=== PATIENT | female | born 1985 | race Two or more races ===

== ENCOUNTER 2018-11-26 13:50 | Emergency (ER) | payer SELFPAY ==
[~2018-11-26] VITALS: Ht 157.5 cm; Wt 61.9 kg
[2018-11-26] MEDS ORDERED: IBUPROFEN 200 MG TABLET ONE (14:24)
[2018-11-26] MEDS ORDERED: IBUPROFEN 600 MG TABLET PO ONE (14:30)
--- NOTE | 2018-11-26 14:45 | NUR ---
pt presents to ED with c/o cough, headache, and neck pain for last few days. pt a&ox4, resps even and unlabored, neuro intact. mask in place. pt medicated per emar, tolerated well. bp and spo2 monitors in place. call light in reach. awaiting lab results and dispo at this time.
[2018-11-26 14:59] LABS: BASOPHILS # (AUTO) 0.05 x10^3/uL (0-0.1); BASOPHILS % (AUTO) 1 % (0-1); EOSINOPHILS % (AUTO) 0 % (1-7); LYMPHOCYTES # (AUTO) 1.36 x10^3/uL (1-3.4); LYMPHOCYTES % (AUTO) 22 % (22-44); MD NO; MEAN CORPUSCULAR HEMOGLOBIN 27.6 pg (27.0-34.8); MEAN CORPUSCULAR HGB CONC 33.4 g/dL (32.4-35.8); MEAN CORPUSCULAR VOLUME 82.7 fL (80-100); MEAN PLATELET VOLUME 8.9 fL (7.4-10.4); MONOCYTES # (AUTO) 0.43 x10^3/uL (0.2-0.8); MONOCYTES % (AUTO) 7 % (2-9); NEUTROPHILS # (AUTO) 4.26 x10^3/uL (1.8-6.8); NEUTROPHILS % (AUTO) 70 % (42-75); PLATELET COUNT 332 x10^3/uL (130-400); RED BLOOD COUNT 5.12 x10^6/uL (3.82-5.3); RED CELL DISTRIBUTION WIDTH 13.8 % (9.6-15.2)
[2018-11-26 15:03] LABS: ALBUMIN 3.5 g/dL (3.4-5.0); ANION GAP 8 mmol/L (5-15); CALCIUM 8.7 mg/dL (8.5-10.1); CHLORIDE 89 mmol/L (98-107)
--- NOTE | 2018-11-26 15:45 | NUR ---
PIV ATTEMPTED X 2 BY THIS RN WITHOUT SUCCESS, CHON RN AT BEDSIDE TO ATTEMPT PIV PLACEMENT.
[2018-11-26] MEDS ORDERED: SODIUM CHLORIDE FLUSH 10ML SYR IVF ONE (16:00)
[2018-11-26] MEDS ORDERED: CEFTRIAXONE PMX 1GM/50ML 50 ML IVPB ONE (16:00)
[2018-11-26] MEDS ORDERED: SODIUM CHLORIDE 0.9% 1,000ML IVBOLUS ONE ×2 (16:00)
[2018-11-26] MEDS ORDERED: CEFTRIAXONE 1,000 MG IM ONE (16:00)
--- NOTE | 2018-11-26 16:00 | NUR ---
PIV PLACED, IVF INITIATED BY CONG GIVENS.
[2018-11-26] MEDS ORDERED: CEFTRIAXONE PMX 1GM/50ML 50 ML ONE (16:15)
--- NOTE | 2018-11-26 16:35 | NUR ---
LAB AND IMAGING RESULTS REVIEWED BY LEXI SEVILLA. PER ERP, PT DOES NOT NEED BLOOD CX PRIOR TO IV ABX PLAN IS TO MANAGE PNA OUTPATIENT. IV ROCEPHIN INITIATED. PIV WAS POSITIONAL SO ONLY 200ML NS HAS INFUSED SO FAR. IV SECURED TO ELIMINATE POSITIONAL FLOW PROBLEMS, IVF INFUSING RAPIDLY AT THIS TIME. PT TO HAVE FINGERSTICK GLUCOSE AFTER 2L NS INFUSED. PT UPDATED WITH POC.
[2018-11-26] MEDS ORDERED: ACETAMINOPHEN 500 MG TABLET ONE (17:00)
--- NOTE | 2018-11-26 17:06 | NUR ---
ERP DI NOTIFIED THAT REPEAT TEMP IS 100.6 AND THAT PT STATES HEADACHE IS NOT IMPROVED S/P MOTRIN. TYLENOL ORDER RECEIVED.
--- NOTE | 2018-11-26 17:20 | NUR ---
PT MEDICATED PER EMAR, TOLERATED WELL. PT A&O, RESPS EVEN AND UNLABORED. SECOND LITER NS INTIATED, INFUSING RAPIDLY.
[2018-11-26] MEDS ORDERED: ACETAMINOPHEN 500 MG TABLET PO ONE (17:30)
--- NOTE | 2018-11-26 17:55 | NUR ---
IVF still infusing, approx 300mL remains. pt a&o, resps even and unlabored, nadn at this time.
[2018-11-26 18:13] VITALS: BP 125/83
--- NOTE | 2018-11-26 18:14 | NUR ---
second liter NS infusion complete. repeat fingerstick glucose is 314, taken by this RN. LEXI Mullins notified. pt a&o, resps even and unlabored. neuro intact. awaiting further orders at this time.
[2018-11-26] MEDS ORDERED: INSULIN LISPRO 100 UNITS/ML, PEN ONE (18:23)
[2018-11-26] MEDS ORDERED: INSULIN REGULAR 100 UNITS/ML, 3ML VIAL SQ-INSULIN ONE (18:30)
--- NOTE | 2018-11-26 18:30 | NUR ---
pt reports headache unresolved, neuro intact. pt a&o. ERP Susanna informed. no subsequent orders received.
--- NOTE | 2018-11-26 19:07 | NUR ---
repeat fingerstick glucose 339, ERP Susanna notified. pt states she cannot afford prescriptions for dc, ERP informed. pt given referral to [facility] for prescription assistance. ERP ok'd dc. piv dc'd with tip intact. pt given dc instructions and script, educated regarding amoxicillin and zithromax rx. pt a&o, resps even and unlabored, skin pwd. pt amb to dc desk with steady gait, accompanied by son. guadalupe.
== END 2018-11-26 19:11 | disposition home or self-care (01) ==
LOC: ED 16:30
DX: J18.9 Pneumonia, unspecified organism (principal); E11.65 Type 2 diabetes mellitus with hyperglycemia
CPT/HCPCS: 36415; 71046; 80048; 82040; 82962; 85025; 96361; 96365; 96372; 99284; J0696; J7030